=== PATIENT | male | born 1980 | race Caucasian/White ===

== ENCOUNTER 2022-09-10 05:47 | Emergency (ER) | payer OTHER ==
[2022-09-10] MEDS ORDERED: LIDOCAINE 1% W/EPI 1:100,000 10 ML VIAL ONE (06:30)
[2022-09-10 06:55] LABS: Absolute Lymphocytes (CBC) 0.9 K/uL (0.7-4.9); Hematocrit 36.2 % (39.6-49.0); Lymphocytes % 6.5 % (15.3-44.8); MCV 88.4 fL (80-100); MPV 8.2 fL (7.6-11.3); RBC Red Blood Cell Count 4.09 M/uL (4.33-5.43)
[2022-09-10 07:13] LABS: Albumin 3.3 g/dL (3.4-5.0); Bilirubin Total 0.5 mg/dL (0.2-1.0); Magnesium 2.4 mg/dL (1.6-2.4); Potassium 3.9 mEq/L (3.5-5.1); Protein, Total 6.5 g/dL (6.4-8.2); Troponin High Sensitivity 8.1 pg/mL (<58.9)
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
--- NOTE | 2022-09-10 07:30 | RAD REPORT ---
EXAM DESCRIPTION: CT - Facial Bones W Con Mpr - 09/10/2022 6:59 am CLINICAL HISTORY: Facial injury with pain COMPARISON: None TECHNIQUE: Computed axial tomography of the face was obtained. Coronal and sagittal reconstruction w as performed. All CT scans are performed using dose optimization technique as appropriate and may include automated exposure control or mA/KV adjustment according to patient size. FINDINGS: Mild left supraorbital swelling A fracture is not seen. A TMJ dislocation is not noted. The globes are intact. Fluid within the sinuses is not seen. IMPRESSION: Negative for a facial fracture.
--- NOTE | 2022-09-10 08:06 | RAD REPORT ---
EXAM DESCRIPTION: RAD - Elbow Right 3 View - 09/10/2022 7:54 am CLINICAL HISTORY: Right elbow pain status post injury FINDINGS: No fracture or dislocation is seen.
--- NOTE | 2022-09-10 08:08 | RAD REPORT ---
EXAM DESCRIPTION: RAD - Hand Right 3 View - 09/10/2022 7:54 am CLINICAL HISTORY: Right hand pain status post injury FINDINGS: Comminuted moderately displaced fracture involves the base of the fifth distal phalanx. No dislocation seen
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
[2022-09-10 08:57] VITALS: TEMP 97.9
[2022-09-10 08:58] VITALS: BP 130/86; O2SAT 96
--- NOTE | 2022-09-10 16:06 | EKG ---
Test Date: 2022-09-10 Test Time: 07:15:32 Drug Worker: CYNDIE MEASUREMENT RESULTS: Intervals: Rate: 72 NE: 162 QRSD: 82 QT: 394 QTc: 431 [place]: P: 55 NE: 162 QRS: 54 T: 29 INTERPRETIVE STATEMENTS: Normal sinus rhythm Normal ECG No previous ECG available for comparison Electronically Signed On 09-10-22 16:04:39 CDT by Jaime Matias
== END 2022-09-10 08:51 | disposition home or self-care (01) ==
LOC: ER 05:47
PROC: 0HQ1XZZ Repair Face Skin, External Approach (ICD-10-PCS; principal; 2022-09-10)
PROC: 0HQDXZZ Repair Right Lower Arm Skin, External Approach (ICD-10-PCS; 2022-09-10)
PROC: 2W3JX1Z Immobilization of Right Finger using Splint (ICD-10-PCS; 2022-09-10)
DX: S01.81XA Laceration without foreign body of other part of head, initial encounter (principal); S62.666A Nondisplaced fracture of distal phalanx of right little finger, initial encounter for closed fracture; S51.011A Laceration without foreign body of right elbow, initial encounter; F17.210 Nicotine dependence, cigarettes, uncomplicated
CPT/HCPCS: 36415; 70450; 70487; 72125; 76377; 80053; 82550; 83735; 84484; 85025; 93005